=== PATIENT | male | born 1965 | race Caucasian/White ===

== ENCOUNTER 2019-05-13 23:46 | Inpatient (IN) ==
--- OUTSIDE RECORDS SUMMARY | 2019-05-13 23:48 | External Medical Summary | Continuity of Care Document ---
:1965 Author Name Jaden Quintanilla Address Unavailable Unavailable , Care Team Providers Name Role Phone Unavailable Unavailable Unavailable PCP, UNKNOWN Unavailable Unavailable Problems Active medical history not documented Allergies and Adverse Reactions Allergy history not documented Medications Medications not documented Procedures Procedures not documented Immunizations Immunizations not documented Plan of Treatment Planned Observations Planned Goals not documented Results No Known Results Results not documented
[2019-05-14 00:18] LABS: Basophils # (auto) 0.07 K/uL (0-0.2); Basophils % (auto) 0.7 %; Eosinophils # (auto) 0.53 K/uL (0-0.5); Eosinophils % (auto) 5.2 %; Hematocrit (blood only) 41.9 % (42-52); Hemoglobin 15.1 g/dL (14.0-18.0); Immature Granulocytes # (auto) 0.03 K/uL (0.00-0.02); Immature Granulocytes % (auto) 0.3 %; Lymphocytes % (auto) 38.3 %; Mean Corpuscular Volume 88.8 fL (80-100); Monocytes # (auto) 0.77 K/uL (0.11-0.59); Monocytes % (auto) 7.6 %; Neutrophils # (auto) 4.87 K/uL (1.4-6.5); Neutrophils % (auto) 47.9 %; Platelet Count 226 K/uL (130-400); RDW Coefficient of Variation 13.7 % (11.5-14.5); Red Blood Count 4.72 M/uL (4.7-6.1); White Blood Count 10.17 K/uL (4.8-10.8)
[2019-05-14 00:28] LABS: Appearance Urine Clear (Clear); Bilirubin Urine Negative (Negative); Blood Urine Negative (Negative); Color Urine Yellow; Glucose Urine UA Negative (Negative); Ketones Urine Negative (Negative); Leukocyte Esterase Urine Negative (Negative); Nitrite Urine Negative (Negative); Protein Urine Negative (Negative); Specific Gravity Urine 1.012 (1.000-1.030); Urobilinogen Urine Negative (Negative)
[2019-05-14 00:37] LABS: BUN Creatinine Ratio 9.2 (10-20); Calcium 8.5 mg/dl (8.5-10.1); Est GFR (African American) 95.9; Est GFR (Non-African American) 82.8; Potassium 3.9 mmol/L (3.5-5.1)
[2019-05-14 00:48] LABS: Albumin Globulin Ratio 1.2 (0.9-2); Bilirubin,Total 0.3 mg/dl (0.2-1); Globulin 3.4 gm/dl (2.5-4.0); Thyroid Stimulating Hormone 3.13 uIu/ml (0.300-4.500); Total Protein 7.4 gm/dl (6.4-8.2)
[2019-05-14 00:48] LABS: Amphetamines+Metham, Urine Neg (Neg); Barbiturates, Urine Neg (Neg); Benzodiazepine, Urine Neg (Neg); Cocaine, Urine Neg (Neg); MDMA (Ecstacy), Urine Neg (Neg); Methadone, Urine Neg (Neg); Opiate, Urine Neg (Neg); Phencyclidine, Urine Neg (Neg)
[2019-05-14 01:11] LABS: Acetaminophen < 2 ug/ml (10-30); Salicylate 4.1 mg/dl (2.8-20)
[2019-05-14] MEDS ORDERED: NICOTINE 21 MG/24 HR TDSY TD ONE (07:10)
--- NOTE | 2019-05-14 07:42 | Emergency Department Note ---
Entered by Nicki Keita acting as a scribe for Alaina Powers DO History of Present Illness General Chief complaint: Mental Health Evaluation Stated complaint: 302 mental eval Time Seen by Provider: 05/13/19 23:53 History of Present Illness Provider complaint: mental health evaluation Onset (ago): minute(s) Location: left and right Severity: similar to prior episodes Maximum Pain Intensity: 0 Quality: + other (mental health evaluation) Associated symptoms: + other (Negative abdominal pain); no chest pain and no shortness of breath The patient, who is a 54 year old male with a medical history of depression, PTSD and kidney stones, presents to the Emergency Room with a mental health evaluation request by . Case management states that patient has a history of depression and PTSD. Case management reports that the patient has been threatening suicide for months. The patient's report states that his has had to wrestle and retrieve his guns from him. The patient's records show that the guns have been removed from the home by a family friend. The patient explains that he has been feeling more depressed recently due to issues with females (quoted as "woman things"). The patient confirms that he is and lives with his . The patient states that he has one son that is 40 years old. 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 The patient admits to drinking alcohol and smoking marijuana tonight. The patient denies any other drug use. The patient denies abdominal pain, chest pain or shortness of breath. 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 and A total of 10 systems reviewed and were otherwise negative Physical Exam Vital Signs Vital Signs - 24 hr 05/13/19 23:49 05/14/19 03:00 05/14/19 05:03 Temperature 36.4 C L Temperature Source Oral Sepsis Recent Fever Within 48 Hours No Sepsis New/Unexplained Change in Mental Status No Sepsis Action Taken by Nursing No Action Required Pulse Rate 78 Pulse Rate [Finger] 72 73 Respiratory Rate 18 16 16 Respiratory Effort / Characteristics Non-Labored Spontaneous Non-Labored Spontaneous Non-Labored Spontaneous Respiratory Depth Normal Normal Normal Blood Pressure 136/92 Blood Pressure [Left Arm] 128/87 123/84 Blood Pressure Mean 106 Blood Pressure Mean [Left Arm] 100 97 Pulse Oximetry 96 96 95 Oxygen Delivery Method Room Air Room Air Room Air General: intoxicated, smells of alcohol, cooperative HEENT: Head - normocephalic and atraumatic Pupils are equal, round, and reactive to light. Extraocular eye muscles are intact, and sclera are anicteric. Nose - moist nasal mucosa without discharge. Mouth - moist buccal mucosa. Oropharynx is nonerythematous and there is no tonsillar exudate or edema noted. Neck: Supple; no JVD or cervical lymphadenopathy Heart: Regular rate and rhythm. There is a normal S1 and S2 with no murmurs, clicks, or gallops appreciated. Lungs: Clear to auscultation bilaterally with no wheezes, rales, or rhonchi. Abdomen: Soft, completely nontender, nondistended, with good bowel sounds. There are no palpable pulsatile masses or hepatosplenomegaly. There is no guarding, rigidity, or rebound noted. Extremities: No evidence of cyanosis, clubbing, or edema. There are easily palpable peripheral pulses. Skin: warm and dry with good turgor and no rashes. Psych: Denies suicidal ideation, appears intoxicated with elevated affect. Course 0024: Past medical records reviewed. The patient was evaluated in room B2. A complete history and physical exam was performed. Laboratory studies were drawn as above. 0107: I was updated by case management that the reported that the patient ran out of his medication on November 17. The patient's notes that he has been altered from baseline since. The patient's is petitioning a 302 as she is concerned for her safety and his safety since she has had to wrestle a gun from his hand while intoxicated. 0116: I reassessed the patient who is sleeping. He won't be medically cleared till 05:30. 0539: The patient is being evaluated by case management 0602: I talked to case management who informed me that the patient is unwilling to stay voluntarily. I will be signing the 302 warrant. 0647: I reassessed the patient who was extremely unhappy. [facility] will most likely accept this patient for admission. Administered Medications Lurasidone HCl (Latuda) 60 mg PO DAILY MOSES Stop: 06/13/19 11:44 Last Admin: 05/14/19 13:06 Dose: 60 mg Documented by: [id number] Discontinued Medications Nicotine (Nicoderm Cq) Confirm Administered Dose 21 mg TD .STK-MED ONE Stop: 05/14/19 07:11 Last Admin: 05/14/19 07:16 Dose: 21 mg Documented by: [id number] Medical Decision Making Differential Diagnosis Differential diagnosis includes: alcohol intoxication, drug abuse, suicidal ideation, mood disorder, thought dis order, as well as others were considered Medical Records Attestation: I reviewed the patient's medical records. Home Medications Current Medication List: was personally reviewed by me Laboratory Data Attestation: I reviewed the patient's lab results. Result diagrams: 05/14/19 00:05 05/14/19 00:05 Lab Results 05/14/19 05/14/19 05/14/19 Range/Units 00:02 00:02 00:05 WBC 10.17 (4.8-10.8) K/uL RBC 4.72 (4.7-6.1) M/uL Hgb 15.1 (14.0-18.0) g/dL Hct 41.9 L (42-52) % MCV 88.8 (80-100) fL MCH 32.0 (25-34) pg MCHC 36.0 (32-36) g/dL RDW Std Deviation 45.0 (36.4-46.3) fL RDW Coeff of Manpreet 13.7 (11.5-14.5) % Plt Count 226 (130-400) K/uL MPV 9.0 (7.4-10.4) fL Immature Gran % (Auto) 0.3 % Neut % (Auto) 47.9 % Lymph % (Auto) 38.3 % Park % (Auto) 7.6 % Eos % (Auto) 5.2 % Baso % (Auto) 0.7 % Immature Gran # (Auto) 0.03 H (0.00-0.02) K/uL Neut # (Auto) 4.87 (1.4-6.5) K/uL Lymph # (Auto) 3.90 H (1.2-3.4) K/uL Park # (Auto) 0.77 H (0.11-0.59) K/uL Eos # (Auto) 0.53 H (0-0.5) K/uL Baso # (Auto) 0.07 (0-0.2) K/uL Sodium (136-145) mmol/L Potassium (3.5-5.1) mmol/L Chloride (98-107) mmol/L Carbon Dioxide (21-32) mmol/L Anion Gap (3-11) BUN (7-18) mg/dl Creatinine (0.6-1.4) mg/dl Est Cr Clr Drug Dosing ml/min Est GFR ( Amer) Est GFR (Non-Af Amer) BUN/Creatinine Ratio (10-20) Glucose (70-99) mg/dl Calcium (8.5-10.1) mg/dl Total Bilirubin (0.2-1) mg/dl AST (15-37) U/L ALT (12-78) U/L Alkaline Phosphatase (45-117) U/L Total Protein (6.4-8.2) gm/dl Albumin (3.4-5.0) gm/dl Globulin (2.5-4.0) gm/dl Albumin/Globulin Ratio (0.9-2) TSH (0.300-4.500) uIu/ml Urine Color Yellow Urine Appearance Clear (Clear) Urine pH 5.0 (4.5-7.5) Ur Specific [place] 1.012 (1.000-1.030) Urine Protein Negative (Negative) Urine Glucose (UA) Negative (Negative) Urine Ketones Negative (Negative) Urine Blood Negative (Negative) Urine Nitrite Negative (Negative) Urine Bilirubin Negative (Negative) Urine Urobilinogen Negative (Negative) Ur Leukocyte Esterase Negative (Negative) Salicylates (2.8-20) mg/dl Urine Opiates Screen Neg (Neg) Ur Methadone, Qual Neg (Neg) Acetaminophen (10-30) ug/ml Urine Barbiturates Neg (Neg) Ur Phencyclidine (PCP) Neg (Neg) U Amphetamin/Meth Scrn Neg (Neg) MDMA (Ecstasy) Screen Neg (Neg) U Benzodiazepines Scrn Neg (Neg) Ur Cocaine Metabolite Neg (Neg) U Marijuana (THC) Screen Pos H (Neg) Ethyl Alcohol mg/dL (0-3) mg/dl 05/14/19 05/14/19 05/14/19 Range/Units 00:05 00:05 00:05 WBC (4.8-10.8) K/uL RBC (4.7-6.1) M/uL Hgb (14.0-18.0) g/dL Hct (42-52) % MCV (80-100) fL MCH (25-34) pg MCHC (32-36) g/dL RDW Std Deviation (36.4-46.3) fL RDW Coeff of Manpreet (11.5-14.5) % Plt Count (130-400) K/uL MPV (7.4-10.4) fL Immature Gran % (Auto) % Neut % (Auto) % Lymph % (Auto) % Park % (Auto) % Eos % (Auto) % Baso % (Auto) % Immature Gran # (Auto) (0.00-0.02) K/uL Neut # (Auto) (1.4-6.5) K/uL Lymph # (Auto) (1.2-3.4) K/uL Park # (Auto) (0.11-0.59) K/uL Eos # (Auto) (0-0.5) K/uL Baso # (Auto) (0-0.2) K/uL Sodium 139 (136-145) mmol/L Potassium 3.9 (3.5-5.1) mmol/L Chloride 109 H (98-107) mmol/L Carbon Dioxide 23 (21-32) mmol/L Anion Gap 7.0 (3-11) BUN 9 (7-18) mg/dl Creatinine 1.01 (0.6-1.4) mg/dl Est Cr Clr Drug Dosing 87.0 ml/min Est GFR ( Amer) 95.9 Est GFR (Non-Af Amer) 82.8 BUN/Creatinine Ratio 9.2 L (10-20) Glucose 93 (70-99) mg/dl Calcium 8.5 (8.5-10.1) mg/dl Total Bilirubin 0.3 (0.2-1) mg/dl AST 44 H (15-37) U/L ALT 42 (12-78) U/L Alkaline Phosphatase 50 (45-117) U/L Total Protein 7.4 (6.4-8.2) gm/dl Albumin 4.0 (3.4-5.0) gm/dl Globulin 3.4 (2.5-4.0) gm/dl Albumin/Globulin Ratio 1.2 (0.9-2) TSH 3.130 (0.300-4.500) uIu/ml Urine Color Urine Appearance (Clear) Urine pH (4.5-7.5) Ur Specific [place] (1.000-1.030) Urine Protein (Negative) Urine Glucose (UA) (Negative) Urine Ketones (Negative) Urine Blood (Negative) Urine Nitrite (Negative) Urine Bilirubin (Negative) Urine Urobilinogen (Negative) Ur Leukocyte Esterase (Negative) Salicylates 4.1 (2.8-20) mg/dl Urine Opiates Screen (Neg) Ur Methadone, Qual (Neg) Acetaminophen < 2 L (10-30) ug/ml Urine Barbiturates (Neg) Ur Phencyclidine (PCP) (Neg) U Amphetamin/Meth Scrn (Neg) MDMA (Ecstasy) Screen (Neg) U Benzodiazepines Scrn (Neg) Ur Cocaine Metabolite (Neg) U Marijuana (THC) Screen (Neg) Ethyl Alcohol mg/dL 231.0 H (0-3) mg/dl Blood Pressure Blood Pressure Findings: Normal blood pressure MDM Narrative The patient, who is a 54 year old male with a medical history of depression, PTSD and kidney stones, presents to the Emergency Room with a mental health evaluation request by . The patient has been making suicidal threats. The patient is intoxicated. Once the patient was sober, he was evaluated by the ED psychiatric clinical case manager. I have significant concern for the patient's safety as he has been making suicidal threats and has access to guns. The patient is unwilling to sign himself in voluntarily. The 302 was signed. The bed search began and the patient will be admitted to [facility] Impression & Plan Suicidal ideation, Alcohol overdose Discharge Plan Visit Data *Final* Discharge Date/Time: 05/14/19 09:55 Chief Complaint: Mental Health Evaluation Stated Complaint: 302 mental eval ED Provider: Alaina Powers Discharge Problem: Suicidal ideation, Alcohol overdose Patient Disposition: Admitted As Inpatient Discharge Instructions Interventions: ED Discharge Assessment Last Done: 05/14/19 09:55 Discharge Problem: Alcohol overdose Qualifiers: Encounter type: initial encounter Injury intent: accidental or unintentional Qualified Code(s): T51.91XA - Toxic effect of unspecified alcohol, accidental (unintentional), initial encounter The scribe's documentation has been prepared under my direction and personally reviewed by me in its entirety. I confirm that the note above accurately reflects all work, treatment, procedures, and medical decision making performed by me.
[2019-05-14] MEDS ORDERED: ALUMINUM/MAGNESIUM SUSP 30 ML UDC PO PRN (08:17)
[2019-05-14] MEDS ORDERED: BISMUTH SUBSALICYLATE PER ML OMNICELL CHARGE PO PRN (08:17)
[2019-05-14] MEDS ORDERED: ACETAMINOPHEN 325 MG TAB PO PRN (08:17)
[2019-05-14] MEDS ORDERED: SODIUM CHLORIDE 0.65% NA SOLN 45 ML (OCEAN) PRN (08:17)
[2019-05-14] MEDS ORDERED: MAGNESIUM HYDROXIDE SUSP 30 ML UDC PO PRN (08:17)
[2019-05-14] MEDS ORDERED: LURASIDONE HCL 40 MG TAB PO SCH (11:45)
--- NOTE | 2019-05-14 11:50 | History & Physical ---
Date of Service May 14, 2019 Impression / Recommendations Impression This 54-year-old man tells us that he has no past psychiatric history, denies that he has been experiencing significant depression, and also insists that he is having no thoughts of causing physical harm to himself, nor is he having any thoughts of causing physical harm to the person or property of others. Nevertheless, the patient's contacted the police last night while the patient was intoxicated and reported that he had been threatening to shoot himself periodically over the course of at least a month. The also reportedly said that she had to physically prevent him from accessing his guns last evening. The patient's explanation for the current circumstances is that his is eager to force him out of the home that she wishes to occupied by herself, within the context of their failed and very unhappy marriage. He asserts that he has tried a number of times to get her to move out, given that he believes that he should be entitled the house since he has been responsible for the mortgage and other expenses, but acknowledges that the house is currently in both his name and his 's name. Patient says that his has consistently and vociferously refused to leave the house and, instead, keeps insisting that he is the one that needs to leave. The patient states, "so I think she 1. This got me out of the house, and that is what she has been trying to do." At the same time, the patient is able to reframe the situation by saying, "and, if you think about it, may be she did me a favor. This is the straw that broke the camel's back." He adds that the current situation has served to provide him with an impetus to, in fact, find another place to live and file for divorce. When asked what he plan to do about the house, he said "well, rightfully it should be mine because I am the one that has always paid for it. However, she is probably entitled to a part of it, and as far as I am concerned finding over the house is no longer worth it."He says that he thinks that the simplest thing for him to do would be simply to sign the house over to his , find a new job close to his family in [facility], and moved in with his sister until he can get back on his feet. (1) Suicidal ideation: 05/14/19 -The patient's has reported that the patient threatened suicide on the evening prior to admission, threatened to shoot himself, and, in fact, has made similar threats on several occasions during the course of the past month. The patient, himself, insists that this is absolutely not the case and, in fact, his has a history of alcohol and cocaine abuse and, in fact, is simply fabricating the assertions that he is suicidal as a way of forcing him to get out of the housesomething that he reports that she has been trying to do for some time now because their marriage has fallen apart and become antagonistic.. Present on Admission?: Yes (2) Alcohol abuse: 05/14 -The patient says that he does not believe that he has a problem with alcohol use, and says that while he acknowledges the fact that he ended up in the em ergency room while intoxicated last evening represents a problem, he attributes this problem primarily not to his use of alcohol but, instead, to his 's subterfuge and me and mendacity. He acknowledges that he drinks on weekends, but says that he typically does not drink to the point of intoxication and that last night was an unusual occurrence that he attributed to boredom, the fact that there was a thunderstorm, and the fact that he had been disappointed by canceled social plans. -He tells us that he is not willing to consider treatment for alcohol abuse, nor is he willing to consider participating in self-help groups such as Alcoholics Anonymous. Present on Admission?: Yes (3) Adjustment disorder with mixed emotional features: 05/14 -The patient presents with several features that suggest possible underlying psychiatric difficulties. He acknowledges that he tends to become tearful and even "cry like a baby" when he watches a movie or television show that the packs a happy home coming for a foreign war . However, the context of this is the fact that when he returned from the [place] he did not have a happy, coming and, in fact, his first marriage began a rapid decline upon his return. He also acknowledges that he has a lifelong history of having some difficulty regulating his mood and, in particular, his temper. He denies vegetative symptoms of depression, and says that his mood has not been depressed, nor has not been particularly anxious. He does say that he believes that he may have posttraumatic stress disorder, but does not endorse symptoms consistent with this diagnosis, other than some emotional lability. He also does not report a history of paula or hypomania. -He has been placed on the medication Latuda 60 mg daily [facility]. It is not clear at this point why Latuda has been prescribed. He says that he ran out of the medication approximately 2 weeks ago, and notes that he has been repeatedly told that Latuda is being used to manage his chronic low back pain. He adds, "it does help. Nothing else was really helping, and I do not want to take a whole bunch of drugs." -As best we can tell, the patient's current distress is related to the difficulties that he is having adjusting to his failed marriage. The marriage has lasted approximately 13 years and he says that, at first, it was in fact a happy marriage. However, over the years, he became more aware of his 's selfishness, her lack of consideration for other people, and her self absorption. He also says that she relies on his income to purchase cocaine, and regularly abuses cocaine and alcoholover his objections. Present on Admission?: Yes Inventory Assets Strengths: Employed. The patient says that he has not missed a days work in s ever years and has worked for the same company for approximately 10 years. He is dedicated to his job and to his employer. He also maintains a supportive relationship with his family of origin, and with a number of friends. Needs: Abstinence from alcohol. Improved mood regulation. Improved coping strategies. 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 Alcohol misuse. Marital difficulties. Apparent access to firearms (although the patient denies that this is true). Male: Yes : Yes Do You Have Access To A Gun?: Yes (Although the patient says that he has guns that are locked up in a cabinet and that he does not remember where the dumont to the cabinet is, his is reported that, on the evening prior to admission, she had to physically prevent him from accessing the guns.) Health Problems: Yes Mental Health Diagnoses: Yes Substance Use Disorders: Yes Previous Attempt: No Family History of Suicide: No Previous Psychiatric Hospitalization: No Hopelessness: No Smoker: Yes Protective Factors Assessment Oriental Orthodox Beliefs: No : Yes (The patient is , but says that he plans to seek separation and divorce in the near future.) Responsible for Young Children: No Employed: Yes ([employer] in [employer]) Stable Relationships: Yes Supportive Family: Yes Good Rapport with Provider: No Absence of Any Risk Factors Above: No Psychiatric History Identifying Data DONTE CROFT is a 54-year-old M who currently lives with his in [place], [place]. He reports that he has a history of PTSD, but denies any history of mood symptoms. He was admitted on 05/14/19 08:17 on a 302 involuntary commitment after his reported that, on the evening prior to admission, he was threatening to shoot himself. Chief Complaint "I am fine. It is my want to be up here. She is got a cocaine problem." History of Present Illness The patient is a 54-year-old man who reports that he has had no previous psychiatric hospitalizations or other contact with the psychiatric community who was brought to the emergency room by the police after they were contacted by the patient's . According to the petitioning statement, the patient had become intoxicated and, according to his , was threatening suicide. The also reportedly said that she had to physically stop the patient from holding a firearm. In the emergency room, while intoxicated, the patient was agitated and generally uncooperative, and, reportedly, was not forthcoming, even after becoming sober. He was involuntarily admitted to the inpatient psychiatric unit. On evaluation on the psychiatric unit the patient acknowledges that he got "drunk" on beer last night after his plans for a social event fell through because of last night storms. He notes that his was also drinking and, possibly, using cocaine. He recalls having a disagreement with his , but insists that he never tried to grab any firearms, tells me that the firearms are locked up in a cabinet and he does not have the dumont, and that although he was intoxicated he recalls everything that happened last night very clearly and he says he "absolutely did not make any suicide threats." The patient goes on to explain the situation by saying that his marriage has been "on the rocks" for a number of years. His depends on him financially and has refused to move out of their house, even though he is asked her to do so repeatedly. Within this context, he says that he believes that the patient's has made false allegations against him in order to force him out of the house and "set things up" so that she will maintain residence in a home that the patient, himself, has been paying for out of his own earnings. When asked why the patient had not moved out on his own if he has been so unhappy in his marriage, he says, "I keep trying to get her to leave. Like I said, it is my house!" He insists that not only did he not make suicidal statements last night, he has never had any thoughts of suicide, has no history of any intentional self-injurious behaviors, and loves life. He adds that he realizes that in some ways his may have done him a favor because the circumstances that led up to the current admission represent, as he put it, "the straw that broke the camel's back." By that he says that he means of that he realizes that he he must in the marriage and, if that means finding another place for himself to live, "so be it." He also says that he has had no thoughts of causing physical harm to his , and although he says that he feels that it is not fair that his should be able to maintain residence in a house that he has paid for while he will have to move in with his family or find an apartment, he says that "for the sake of my own peace of mind" he is willing to do this. 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 Nevertheless, he says that he thinks that the best plan would be for him to move to [facility], and live with his sister and, or near, his home town. He adds that he has a number of friends in this location and feels that he would be able to find another job. The patient is a of "[place]," and says that as a result of this he has significant hearing loss (the hearing loss is quite evident during the interview) and that he has been offered hearing aids by the [facility] but has not yet acquired them. 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 However, he has difficulty telling me what those symptoms are, other than to say that whenever he watches a "sweet" movie or television show that the picks someone coming home from the and being warmly greeted the by friends, families, and/or pets he tends to "cry like a baby." He does not describe flashbacks, he does not report any difficulty sleeping, and does not indicate that he has nightmares. The patient notes that the [facility] has declined to diagnose PTSD. It is noted that he is taking Latuda 60 mg a day, but he also reports that he has not been diagnosed with any mood disorder. Instead, he says that he is receiving this medication from a primary care provider at the [facility], and it is for his chronic low back pain. (Note. This may be an effective, but off label use for lurasidone.) Past Psychiatric History Previous Psych History: Patient reports no previous contact with the psychiatric community. Current Psychiatric Diagnosis: None - "they won't say I have PTSD because then they would have to pay Outpatient Services: Patient reports that he has no history of outpatient psychiatric treatment. Previous Psych Admissions: The patient reports that this is his first psychiatric hospitalization Do You Have Access To A Gun?: Yes (Although the patient says that he has guns that are locked up in a cabinet and that he does not remember where the dumont to the cabinet is, his is reported that, on the evening prior to admission, she had to physically prevent him from accessing the guns.) History of Previous Suicide Attempt: No Describe Attempts in the Past: Per - numberous threats to shoot self past month and had gun Past Medication Trials: The patient is currently taking Latuda 60 mg a day. He insists that this is being prescribed by a [facility] provider [facility] and that it is for low back pain secondary to degenerative disc disease, rather than for any mood disorder. Past Head Trauma/Neuro History History of Concussion/Seizure: Yes (Patient reports that he had several concussions while in the . He denies any history of seizures.) Allergies Allergy/AdvReac Type Severity Reaction Status Date / Time No Known Allergies Allergy Verified 05/14/19 05:47 Home Medications Home Medications Medication Instructions Recorded Confirmed Type lurasidone [Latuda] 60 mg PO DAILY 05/14/19 05/14/19 History Family History Family History of: None Alcohol History Hx of Alcohol Use Over the Past 12 Months: Yes (Friday/ - "a shit pile") Patient says that he would describe himself as a "moderate" drinker. He notes that if he drinks, he only drinks on the weekends and never on work nightsalthough he had difficulty explaining how it was that he became intoxicated on a night; i.e., the night prior to admission. However, the patient's reports that he typically does only drink on the weekends. The patient's assertion is that he does not drink to excess and has no history of difficulties associated with his alcohol consumption. Smoking Use Have You Smoked or Used Tobacco Products in the Last 30 Days: Yes tobacco type: cigarettes Smoking Status: Current every day smoker Substance History Hx of Prescription Med Misuse Over the Past 12 Months: No Hx of Over the Counter Med Misuse Over the Past 12 Months: No Hx of Inhalent Misuse Over the Past 12 Months: No Hx of Organic Substance Use Over the Past 12 Months: Yes (Marijuana - 3X/daily) Hx of Illegal Substances/Street Drug Use Over Past 12 Months: No Problems as a Result of Past Substance Use: Uncontrolled Anger Personal History Living Arrangements: Home Living Arrangements Comments: Patient currently lives with his in [place], [place]. The couple raised his 's son from a previous relationship, but that son is no longer living in the house. The patient tells us that his intent is to remove his belongings from the home, file for separation and divorce, and live elsewhere Childhood: [facility], near [place]. He describes his childhood as "okay." He indicates that he is close to his sister who is still living in [facility] and is very supportive. He also says that he has a fairly good relationship with his parents, but has not seen them as often as he would like. 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 He notes that he feels that his job is supportive and he feels a sense of loyalty to the company.) Marital Status: Number Of Children: 1 biological child from his first marriage. One stepson from his second. 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 Alaina Powers in the emergency department has been reviewed and is accepted for the purposes of medical clearance to the inpatient psychiatric unit. Physical Exam Psychiatric: Orientation: alert and oriented x 3 Apperance: + disheveled Eye Contact: good eye contact Motor Behavior: steady gait and station The patient has bilateral hearing deficits and is somewhat loud. However, his speech is not pressured. Affect: + irritable affect "Not depressed. Pissed off that my did this to me." Thought Process: linear/logical thought process Thought Content: reality based without delusions Suicidal Thoughts: denies suicidal thoughts Although the patient's reports that the patient voiced suicidal thoughts last evening and, in fact, his mood number of threats to shoot himself during the past month, the patient asserts that his is simply fabricating these assertions because she is seeking to force him to leave the house within the context of their failing marriage. The patient, himself, strongly denies having any suicidal thoughts and also denies ever voicing suicidal thoughts. Homicidal Thoughts: denies homicidal thoughts When specifically asked if he has had thoughts of causing physical harm to his or to her property, he tells us that he does not. He acknowledges that he is quite angry at his , but says that at this point his goal is simply to "get away from her" and "live a normal life." Hallucinations: no auditory hallucinations, no visual hallucinations, no tactile hallucinations and no gustatory hallucinations Cognition: recent memory grossly intact, remote memory grossly intact and language grossly intact Estimated Intelligence: average estimated intelligence Insight: + limited insight (The patient externalizes liberally. For example, he blames both of his failed marriages on external factors. He notes that he blames his friends for not trying to stop him when he announced that he was going to his current , approximately 13 years ago.) Judgement: + fair judgement The patient's judgment while intoxicated was clearly poor, but today, now that he is sober and has calm down, his judgment is at least fair. He recognizes that given his gross dissatisfaction with the state of his marriage, his best option is to leave the home, file for divorce, and seek to rebuild his life. Vital Signs (Past 24 Hours): Last Vital Signs Temp 36.4 C L 05/13/19 23:49 Pulse 78 05/14/19 09:55 Resp 16 05/14/19 09:55 BP 144/83 H 05/14/19 09:55 Pulse Ox 97 05/14/19 09:55 Results & Data Laboratory Results Laboratory Results - last 24 hr 05/14/19 05/14/19 05/14/19 00:02 00:02 00:02 WBC RBC Hgb Hct MCV MCH MCHC RDW Std Deviation RDW Coeff of Manpreet Plt Count MPV Immature Gran % (Auto) Neut % (Auto) Lymph % (Auto) Pacific % (Auto) Eos % (Auto) Baso % (Auto) Immature Gran # (Auto) Neut # (Auto) Lymph # (Auto) Pacific # (Auto) Eos # (Auto) Baso # (Auto) Sodium Potassium Chloride Carbon Dioxide Anion Gap BUN Creatinine Est Cr Clr Drug Dosing Est GFR ( Amer) Est GFR (Non-Af Amer) BUN/Creatinine Ratio Glucose Calcium Total Bilirubin AST ALT Alkaline Phosphatase Total Protein Albumin Globulin Albumin/Globulin Ratio TSH Urine Color Yellow Urine Appearance Clear Urine pH 5.0 Ur Specific [place] 1.012 Urine Protein Negative Urine Glucose (UA) Negative Urine Ketones Negative Urine Blood Negative Urine Nitrite Negative Urine Bilirubin Negative Urine Urobilinogen Negative Ur Leukocyte Esterase Negative Salicylates Urine Opiates Screen Neg Ur Methadone, Qual Neg Acetaminophen Urine Barbiturates Neg Ur Phencyclidine (PCP) Neg U Amphetamin/Meth Scrn Neg MDMA (Ecstasy) Screen Neg U Benzodiazepines Scrn Neg Ur Cocaine Metabolite Neg U Marijuana (THC) Screen Pos H U Marijuana THC Carboxy Pending Ethyl Alcohol mg/dL 05/14/19 05/14/19 05/14/19 00:05 00:05 00:05 WBC 10.17 RBC 4.72 Hgb 15.1 Hct 41.9 L MCV 88.8 MCH 32.0 MCHC 36.0 RDW Std Deviation 45.0 RDW Coeff of Manpreet 13.7 Plt Count 226 MPV 9.0 Immature Gran % (Auto) 0.3 Neut % (Auto) 47.9 Lymph % (Auto) 38.3 Pacific % (Auto) 7.6 Eos % (Auto) 5.2 Baso % (Auto) 0.7 Immature Gran # (Auto) 0.03 H Neut # (Auto) 4.87 Lymph # (Auto) 3.90 H Pacific # (Auto) 0.77 H Eos # (Auto) 0.53 H Baso # (Auto) 0.07 Sodium 139 Potassium 3.9 Chloride 109 H Carbon Dioxide 23 Anion Gap 7.0 BUN 9 Creatinine 1.01 Est Cr Clr Drug Dosing 87.0 Est GFR ( Amer) 95.9 Est GFR (Non-Af Amer) 82.8 BUN/Creatinine Ratio 9.2 L Glucose 93 Calcium 8.5 Total Bilirubin 0.3 AST 44 H ALT 42 Alkaline Phosphatase 50 Total Protein 7.4 Albumin 4.0 Globulin 3.4 Albumin/Globulin Ratio 1.2 TSH 3.130 Urine Color Urine Appearance Urine pH Ur Specific [place] Urine Protein Urine Glucose (UA) Urine Ketones Urine Blood Urine Nitrite Urine Bilirubin Urine Urobilinogen Ur Leukocyte Esterase Salicylates 4.1 Urine Opiates Screen Ur Methadone, Qual Acetaminophen < 2 L Urine Barbiturates Ur Phencyclidine (PCP) U Amphetamin/Meth Scrn MDMA (Ecstasy) Screen U Benzodiazepines Scrn Ur Cocaine Metabolite U Marijuana (THC) Screen U Marijuana THC Carboxy Ethyl Alcohol mg/dL 05/14/19 00:05 WBC RBC Hgb Hct MCV MCH MCHC RDW Std Deviation RDW Coeff of Manpreet Plt Count MPV Immature Gran % (Auto) Neut % (Auto) Lymph % (Auto) Pacific % (Auto) Eos % (Auto) Baso % (Auto) Immature Gran # (Auto) Neut # (Auto) Lymph # (Auto) Pacific # (Auto) Eos # (Auto) Baso # (Auto) Sodium Potassium Chloride Carbon Dioxide Anion Gap BUN Creatinine Est Cr Clr Drug Dosing Est GFR ( Amer) Est GFR (Non-Af Amer) BUN/Creatinine Ratio Glucose Calcium Total Bilirubin AST ALT Alkaline Phosphatase Total Protein Albumin Globulin Albumin/Globulin Ratio TSH Urine Color Urine Appearance Urine pH Ur Specific [place] Urine Protein Urine Glucose (UA) Urine Ketones Urine Blood Urine Nitrite Urine Bilirubin Urine Urobilinogen Ur Leukocyte Esterase Salicylates Urine Opiates Screen Ur Methadone, Qual Acetaminophen Urine Barbiturates Ur Phencyclidine (PCP) U Amphetamin/Meth Scrn MDMA (Ecstasy) Screen U Benzodiazepines Scrn Ur Cocaine Metabolite U Marijuana (THC) Screen U Marijuana THC Carboxy Ethyl Alcohol mg/dL 231.0 H Current Inpatient Medications Current Inpatient Medications: Current Inpatient Medications Acetaminophen (Tylenol) 650 mg PO Q4H PRN PRN Reason: Headache or Minor Fever Stop: 06/13/19 08:16 Al Hydrox/Mg Hydrox/Simethicone (Maalox) 30 ml PO Q4H PRN PRN Reason: GI Upset Stop: 06/13/19 08:16 Bismuth Subsalicylate (Kaopectate) 15 ml PO PRN PRN PRN Reason: Loose Stool Stop: 06/13/19 08:16 Hydroxyzine HCl (Vistaril) 50 mg PO HSZ PRN PRN Reason: Insomnia Stop: 06/13/19 08:16 Hydroxyzine HCl (Vistaril) 25 mg PO Q4H PRN PRN Reason: Anxiety Stop: 06/13/19 08:16 Lurasidone HCl (Latuda) 60 mg PO DAILY MOSES Stop: 06/13/19 11:44 Magnesium Hydroxide (Milk Of Magnesia) 30 ml PO DAILY PRN PRN Reason: Constipation Stop: 06/13/19 08:16 Sodium Chloride ([place] Nasal) 1 - 2 sprays NA PRN PRN PRN Reason: Nasal Dryness/Congestion Stop: 06/13/19 08:16
--- NOTE | 2019-05-15 10:06 | Psychiatric Progress Note ---
Date of Service May 15, 2019 Impression / Recommendations Impression This 54-year-old man male, former [employer], with no prior psych history 302'd with polic involvement following reports from that he was threatening to shoot self while intoxicated, but also over course of past month. By her report he was actively trying to access weapons. There is marital discord. (1) Suicidal ideation: 05/14/19 -The patient's has reported that the patient threatened suicide on the evening prior to admission, threatened to shoot himself, and, in fact, has made similar threats on several occasions during the course of the past month. The p atient, himself, insists that this is absolutely not the case and, in fact, his has a history of alcohol and cocaine abuse and, in fact, is simply fabricating the assertions that he is suicidal as a way of forcing him to get out of the housesomething that he reports that she has been trying to do for some time now because their marriage has fallen apart and become antagonistic.. (2) Alcohol abuse: 05/14 -The patient says that he does not believe that he has a problem with alcohol use, and says that while he acknowledges the fact that he ended up in the emergency room while intoxicated last evening represents a problem, he attributes this problem primarily not to his use of alcohol but, instead, to his 's subterfuge and me and mendacity. He acknowledges that he drinks on weekends, but says that he typically does not drink to the point of intoxication and that last night was an unusual occurrence that he attributed to boredom, the fact that there was a thunderstorm, and the fact that he had been disappointed by canceled social plans. -He tells us that he is not willing to consider treatment for alcohol abuse, nor is he willing to consider participating in self-help groups such as Alcoholics Anonymous. (3) Adjustment disorder with mixed emotional features: 05/14 -The patient presents with several features that suggest possible underlying psychiatric difficulties. He acknowledges that he tends to become tearful and even "cry like a baby" when he watches a movie or television show that the packs a happy home coming for a foreign war . However, the context of this is the fact that when he returned from the [place] he did not have a happy, coming and, in fact, his first marriage began a rapid decline upon his return. He also acknowledges that he has a lifelong history of having some difficulty regulating his mood and, in particular, his temper. He denies vegetative symptoms of depression, and says that his mood has not been depressed, nor has not been particularly anxious. He does say that he believes that he may have posttraumatic stress disorder, but does not endorse symptoms consistent with this diagnosis, other than some emotional lability. He also does not report a history of paula or hypomania. -He has been placed on the medication Latuda 60 mg daily [facility]. It is not clear at this point why Latuda has been prescribed. He says that he ran out of the medication approximately 2 weeks ago, and notes that he has been repeatedly told that Latuda is being used to manage his chronic low back pain. He adds, "it does help. Nothing else was really helping, and I do not want to take a whole bunch of drugs." -As best we can tell, the patient's current distress is related to the difficulties that he is having adjusting to his failed marriage. The marriage has lasted approximately 13 years and he says that, at first, it was in fact a happy marriage. However, over the years, he became more aware of his 's selfishness, her lack of consideration for other people, and her self absorption. He also says that she relies on his income to purchase cocaine, and regularly abuses cocaine and alcoholover his objections. Inventory Assets Strengths: Employed. The patient says that he has not missed a days work in several years and has worked for the same company for approximately 10 years. He is dedicated to his job and to his employer. He also maintains a supportive relationship with his family of origin, and with a number of friends. Needs: Abstinence from alcohol. Improved mood regulation. Improved coping strategies. Risk Factors Assessment Male: Yes : Yes Do You Have Access To A Gun?: Yes (Although the patient says that he has guns that are locked up in a cabinet and that he does not remember where the dumont to the cabinet is, his is reported that, on the evening prior to admission, she had to physically prevent him from accessing the guns.) Health Problems: Yes Mental Health Diagnoses: Yes Substance Use Disorders: Yes Previous Attempt: No Family History of Suicide: No Previous Psychiatric Hospitalization: No Hopelessness: No Smoker: Yes Protective Factors Assessment Jehovah'S Witness Beliefs: No : Yes (The patient is , but says that he plans to seek separation and divorce in the near future.) Responsible for Young Children: No Employed: Yes ([employer] in [employer]) Stable Relationships: Yes Supportive Family: Yes Good Rapport with Provider: No Absence of Any Risk Factors Above: No Interval History Chief Complaint "I'm cool here". Review of Systems Sleep Information Total Hours of Sleep: 9 Meal Information Percent Meal Consumed - Breakfast: 100 Percent Meal Consumed - Lunch: 0 Percent Meal Consumed - Dinner: 100 Subjective Subjective Patient was seen & assessed and interval progress reviewed with nursing and social work. Remains on 302 commitment, [facility] not latuda, med rec to be updated. To this point he has been unwilling to sign release for , will need to confirm with her location of guns, removed per case notes as part of safety plan prior to discharge. Cymbalta indication is back pain as patient reported. Cooperative with groups, denies SI and plans to live at his camp at [place] following discharge. Physical Exam Psychiatric The patient presented as alert and cooperative. The patient was casually dressed and groomed. Eye contact was fair. No psychomotor restlessness or agitation was noted. Speech was normal in rate, rhythm, and volume. Affect was mood congruent. The patients mood appeared euthymic. Thought processes were clear, coherent and goal directed without evidence of loose associations or flight of ideas. Thought content/perception was reality based without delusions. The patient denied suicidal and homicidal ideation. The patient denied hallucinations and did not appear to be responding to internal stimuli. Cognition was grossly intact with orientation to person, place and time. Fund of Knowledge/Intelligence were consistent with level of education. Insight and Judgement were fair. Vital Signs (Past 24 Hours) Last Vital Signs Temp 36.7 C 05/15/19 06:52 Pulse 96 H 05/15/19 06:54 Resp 16 05/15/19 06:52 BP 121/76 05/15/19 06:54 Pulse Ox 98 05/14/19 11:37 Results & Data Current Inpatient Medications Current Inpatient Medications: Current Inpatient Medications Acetaminophen (Tylenol) 650 mg PO Q4H PRN PRN Reason: Headache or Minor Fever Stop: 06/13/19 08:16 Al Hydrox/Mg Hydrox/Simethicone (Maalox) 30 ml PO Q4H PRN PRN Reason: GI Upset Stop: 06/13/19 08:16 Bismuth Subsalicylate (Kaopectate) 15 ml PO PRN PRN PRN Reason: Loose Stool Stop: 06/13/19 08:16 Hydroxyzine HCl (Vistaril) 50 mg PO HSZ PRN PRN Reason: Insomnia Stop: 06/13/19 08:16 Hydroxyzine HCl (Vistaril) 25 mg PO Q4H PRN PRN Reason: Anxiety Stop: 06/13/19 08:16 Magnesium Hydroxide (Milk Of Magnesia) 30 ml PO DAILY PRN PRN Reason: Constipation Stop: 06/13/19 08:16 Sodium Chloride ([place] Nasal) 1 - 2 sprays NA PRN PRN PRN Reason: Nasal Dryness/Congestion Stop: 06/13/19 08:16 Mental Health & Subst Abuse Tx Therapist Name of Therapist: None Engineer Steam Name of Engineer Steam: None Post Discharge Appointments Primary Care Physician Name Of Family Doctor: JUDY
[2019-05-15] MEDS: DULOXETINE HCL 60 MG CAP PO SCH (12:49)
[2019-05-15] MEDS: BUDESONIDE/FORMOTEROL FUMARATE 160/4.5 60 PUFFS/INHALER INH SCH (21:09)
[2019-05-16] MEDS: MELOXICAM 7.5 MG TAB PO SCH (07:59)
[2019-05-16] MEDS: BUDESONIDE/FORMOTEROL FUMARATE 160/4.5 60 PUFFS/INHALER INH SCH ×2 (07:59→21:09)
[2019-05-16] MEDS: DULOXETINE HCL 60 MG CAP PO SCH (07:59)
[2019-05-16] MEDS: NICOTINE 21 MG/24 HR TDSY TD SCH (10:20)
[2019-05-16] MEDS: BENZOCAINE 20% (ORAJEL) 11.9 GM TUBE MT PRN (10:21)
--- NOTE | 2019-05-16 10:50 | Psychiatric Progress Note ---
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 By her report he was actively trying to access weapons. There is marital discord. (1) Suicidal ideation: 05/14/19 -The patient's has reported that the patient threatened suicide on the evening prior to admission, threatened to shoot himself, and, in fact, has made similar threats on several occasions during the course of the past month. The patient, himself, insists that this is absolutely not the case and, in fact, his has a history of alcohol and cocaine abuse and, in fact, is simply fabricating the assertions that he is suicidal as a way of forcing him to get out of the housesomething that he reports that she has been trying to do for some time now because their marriage has fallen apart and become antagonistic. 05/16-- remains high risk category given service, relationship ending. Likely minimizing. Family meeting with sister to confront re: statements prior to hospitalization and engage in safety planning. (2) Alcohol abuse: 05/14 -The patient says that he does not believe that he has a problem with alcohol use, and says that while he acknowledges the fact that he ended up in the emergency room while intoxicated last evening represents a problem, he attributes this problem primarily not to his use of alcohol but, instead, to his 's subterfuge and me and mendacity. He acknowledges that he drinks on weekends, but says that he typically does not drink to the point of intoxication and that last night was an unusual occurrence that he attributed to boredom, the fact that there was a thunderstorm, and the fact that he had been disappointed by canceled social plans. -He tells us that he is not willing to consider treatment for alcohol abuse, nor is he willing to consider participating in self-help groups such as Alcoholics Anonymous. (3) Adjustment disorder with mixed emotional features: 05/14 -The patient presents with several features that suggest possible underlying psychiatric difficulties. He acknowledges that he tends to become tearful and even "cry like a baby" when he watches a movie or television show that the packs a happy home coming for a foreign war . However, the context of this is the fact that when he returned from the [place] he did not have a happy, coming and, in fact, his first marriage began a rapid decline upon his return. He also acknowledges that he has a lifelong history of having some difficulty regulating his mood and, in particular, his temper. He denies vegetative symptoms of depression, and says that his mood has not been depressed, nor has not been particularly anxious. He does say that he believes that he may have posttraumatic stress disorder, but does not endorse symptoms consistent with this diagnosis, other than some emotional lability. He also does not report a history of paula or hypomania. -He has been placed on the medication Latuda 60 mg daily [facility]. It is not clear at this point why Latuda has been prescribed. He says that he ran out of the medication approximately 2 weeks ago, and notes that he has been repeatedly told that Latuda is being used to manage his chronic low back pain. He adds, "it does help. Nothing else was really helping, and I do not want to take a whole bunch of drugs." -As best we can tell, the patient's current distress is related to the difficulties that he is having adjusting to his failed marriage. The marriage has lasted approximately 13 years and he says that, at first, it was in fact a happy marriage. However, over the years, he became more aware of his 's selfishness, her lack of consideration for other people, and her self absorption. He also says that she relies on his income to purchase cocaine, and regularly abuses cocaine and alcoholover his objections. 05/16 continue Cymbalta 60 mg, initial indication non-psychiatric but appropriate med option for depressive component. Inventory Assets Strengths: Employed. The patient says that he has not missed a days work in several years and has worked for the same company for approximately 10 years. He is dedicated to his job and to his employer. He also maintains a supportive relationship with his family of origin, and with a number of friends. Needs: Abstinence from alcohol. Improved mood regulation. Improved coping strategies. Risk Factors Assessment Male: Yes : Yes Do You Have Access To A Gun?: Yes (Although the patient says that he has guns that are locked up in a cabinet and that he does not remember where the dumont to the cabinet is, his is reported that, on the evening prior to admission, she had to physically prevent him from accessing the guns.) Health Problems: Yes Mental Health Diagnoses: Yes Substance Use Disorders: Yes Previous Attempt: No Family History of Suicide: No Previous Psychiatric Hospitalization: No Hopelessness: No Smoker: Yes Protective Factors Assessment Nondenominational Beliefs: No : Yes (The patient is , but says that he plans to seek separation and divorce in the near future.) Responsible for Young Children: No Employed: Yes ([employer] in [employer]) Stable Relationships: Yes Supportive Family: Yes Good Rapport with Provider: No Absence of Any Risk Factors Above: No Interval History Chief Complaint "They don't train you to be human again", referring to his service. Review of Systems Sleep Information Total Hours of Sleep: 9.75 Meal Information Percent Meal Consumed - Breakfast: 100 Percent Meal Consumed - Lunch: 100 Percent Meal Consumed - Dinner: 100 Subjective Subjective Patient was seen & assessed and interval progress reviewed with nursing and social work. He has had contact with family, still refusing calls from as plan is to leave their home. Sister coming in for meeting today and reviewed his history of making suicidal statements, even relaying a past attempt or near attempt in November after which he did not follow up at the [place]. He had made statements well before hospitalization. Guns have been removed from home per family to staff. He hasn't been very forthcoming about trauma but has voiced his guilt about having to kill. Also complain of tooth pain, right lower jaw, appears to be a bone chip growing out of his lower gum/root on exam, no discharge or evidence of infection. Has caused excoriation to tongue in past. Will not order ibuprofen as on Mobic. Will need to see dental outpatient but oragel ordered. Physical Exam Psychiatric Orientation: alert Apperance: appropriately groomed Eye Contact: good eye contact Motor Behavior: no abnormal motor movements Speech: normal rate/rhythm/volume of speech Affect: euthymic affect Mood: + depressed mood Thought Process: goal directed thought process Thought Content: + guilt Suicidal Thoughts: denies suicidal thoughts Homicidal Thoughts: denies homicidal thoughts Hallucinations: no auditory hallucinations and no visual hallucinations Cognition: language grossly intact Estimated Intelligence: consistent with education level Insight: + limited insight Judgement: + limited judgement Vital Signs (Past 24 Hours) Last Vital Signs Temp 36.6 C 05/16/19 07:00 Pulse 74 05/16/19 07:01 Resp 18 05/16/19 07:00 BP 102/69 05/16/19 07:01 Pulse Ox 98 05/14/19 11:37 Results & Data Current Inpatient Medications Current Inpatient Medications: Current Inpatient Medications Acetaminophen (Tylenol) 650 mg PO Q4H PRN PRN Reason: Headache or Minor Fever Stop: 06/13/19 08:16 Last Admin: 05/16/19 07:59 Dose: 650 mg Documented by: Al Hydrox/Mg Hydrox/Simethicone (Maalox) 30 ml PO Q4H PRN PRN Reason: GI Upset Stop: 06/13/19 08:16 Benzocaine (Orajel 20%) 1 appln MT Q2HWA PRN PRN Reason: Pain Stop: 06/15/19 09:40 Last Admin: 05/16/19 10:21 Dose: 1 appln Documented by: Bismuth Subsalicylate (Kaopectate) 15 ml PO PRN PRN PRN Reason: Loose Stool Stop: 06/13/19 08:16 Budesonide/Formoterol Fumarate (Symbicort 160mcg/4.5mcg) 2 puffs INH BID MOSES Stop: 06/14/19 20:59 Last Admin: 05/16/19 07:59 Dose: 2 puffs Documented by: Duloxetine HCl (Cymbalta) 60 mg PO DAILY MOSES Stop: 06/14/19 10:59 Last Admin: 05/16/19 07:59 Dose: 60 mg Documented by: Hydroxyzine HCl (Vistaril) 50 mg PO HSZ PRN PRN Reason: Insomnia Stop: 06/13/19 08:16 Hydroxyzine HCl (Vistaril) 25 mg PO Q4H PRN PRN Reason: Anxiety Stop: 06/13/19 08:16 Magnesium Hydroxide (Milk Of Magnesia) 30 ml PO DAILY PRN PRN Reason: Constipation Stop: 06/13/19 08:16 Meloxicam (Mobic) 15 mg PO DAILY MOSES Stop: 06/15/19 08:59 Last Admin: 05/16/19 07:59 Dose: 15 mg Documented by: Miscellaneous (Remove Nicoderm Patch) 1 ea N/A HS MOSES Stop: 06/15/19 20:59 Nicotine (Nicoderm Cq) 21 mg TD QAM MOSES Stop: 06/15/19 10:04 Last Admin: 05/16/19 10:20 Dose: 21 mg Documented by: Sodium Chloride ([place] Nasal) 1 - 2 sprays NA PRN PRN PRN Reason: Nasal Dryness/Congestion Stop: 06/13/19 08:16 Mental Health & Subst Abuse Tx Therapist Name of Therapist: None Model Maker Plaster Name of Model Maker Plaster: None Post Discharge Appointments Primary Care Physician Name Of Family Doctor: JUDY
[2019-05-17] MEDS: DULOXETINE HCL 60 MG CAP PO SCH (08:05)
[2019-05-17] MEDS: BUDESONIDE/FORMOTEROL FUMARATE 160/4.5 60 PUFFS/INHALER INH SCH ×2 (08:06→21:00)
[2019-05-17] MEDS: NICOTINE 21 MG/24 HR TDSY TD SCH (08:06)
[2019-05-17] MEDS: MELOXICAM 7.5 MG TAB PO SCH (08:06)
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
[2019-05-17] MEDS: BENZOCAINE 20% (ORAJEL) 11.9 GM TUBE MT PRN (15:41)
[2019-05-18] MEDS: MELOXICAM 7.5 MG TAB PO SCH (07:16)
[2019-05-18] MEDS: DULOXETINE HCL 60 MG CAP PO SCH (07:16)
[2019-05-18] MEDS: BUDESONIDE/FORMOTEROL FUMARATE 160/4.5 60 PUFFS/INHALER INH SCH (07:17)
[2019-05-18] MEDS: NICOTINE 21 MG/24 HR TDSY TD SCH (07:17)
--- NOTE | 2019-05-18 09:56 | Discharge Summary ---
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 Prescriptions: New nicotine [Nicoderm CQ] 21 mg/24 hr Patch 24 Hour 21 mg transdermal QAM Qty: 1 RF: 0 duloxetine 60 mg Capsule,Delayed Release(Dr/Ec) 60 mg PO DAILY 30 Days Qty: 30 RF: 0 Continued meloxicam [Mobic] 15 mg Tablet 15 mg PO DAILY RF: 0 budesonide-formoterol 160-4.5 mcg/actuation Hfa Aerosol Inhaler 2 puff INHALATION BID RF: 0 Discontinued duloxetine [Cymbalta] 60 mg Capsule,Delayed Release(Dr/Ec) 60 mg PO DAILY RF: 0 Discharge Orders: Discharge Order (Routine); Ordered 05/18/19 Ordered By: Sugey Pierce Admission Data Admit Date/Time: 05/14/19 08:17 Attending Provider: Eder Teresa Admit Provider: Eder Teresa Primary Care Provider: PCP,NO Other Interventions: PSY Interdisciplinary Discharge Planning Last Done: 05/18/19 07:56 Coding Level of Care Code 30348 D/C day mgmt > 30 min Diagnoses Suicidal ideation R45.851 Alcohol abuse F10.10 Adjustment disorder with mixed emotional features F43.29
== END 2019-05-18 10:48 | disposition home or self-care (01) | DRG 882 ==
LOC: ED 23:46 → 3S 05-14 08:17